=== PATIENT | male | born 1960 | race Caucasian/White ===

== ENCOUNTER 2020-10-03 02:09 | Emergency (ER) | payer OTHER ==
[2020-10-03] MEDS ORDERED: Sodium Chloride 0.9% 2.5 ML Syringe FLUSH PRN (02:10)
[2020-10-03] MEDS ORDERED: Sodium Chloride 0.9% 10 ML Syringe FLUSH PRN (02:10)
--- NOTE | 2020-10-03 02:13 | EDM.PDOC ---
ED HPI GENERAL MEDICAL PROBLEM - General Stated Complaint: ABD PAIN Time Seen by Provider: 10/03/20 02:27 - History of Present Illness INITIAL COMMENTS - FREE TEXT/NARRATIVE: History of present illness: [] Has 2 days of pain that started in the anterior chest. It gradually migrated into the epigastrium. Now has migrated down to its in the back. For 1 hours been horribly severe. For 10 years he has episodes as often as twice a month of similar pain. When he gets the pain he vomits and then it goes away. This time he is vomited multiple times and it has not gone away. He is a non-smoker but chews tobacco. In the remote past he saw a doctor who told him that there was something wrong with his gallbladder after doing a work-up in the hospital in [place]. He does not know the name of the hospital. He remembers the studies they did show that his gallbladder bladder was sluggish but there were no stones. The patient is a non-smoker not diabetic and does not take medicine for any medical problems. Last hour the pain has been severe in the epigastrium radiating to the back. Review of systems: As per history of present illness and below otherwise all systems reviewed and negative. Past medical history: As per history of present illness and as reviewed below otherwise noncontributory. Surgical history: As per history of present illness and as reviewed below otherwise noncontributory. Social history: No reported history of drug or alcohol abuse. Family history: As per history of present illness and as reviewed below otherwise noncontributory. Physical exam: Constitutional - well developed, well-nourished and in no acute distress HEENT - normocephalic, no evidence of trauma - external nose and mouth normal - no mass in neck and no JVD - mucosae moist EYES - full EOM, PERRL, no icterus - no evidence of inflammation, injection, or drainage Respiratory - no respiratory distress, equal bilateral expansion, lungs clear to auscultation and no abnormal lung sounds Cardiovascular - Regular Rhythm with S1 and S2 appreciated and no murmur, gallop or rub. GI -stephie in epigastrium only. Abdomen soft without distension or organomegaly - normal bowel sounds - no guard or rebound Musculoskeletal no gross deformity of long bones or joints - no tenderness, swelling or edema Neurologic - Alert and oriented times four - CN II-XII grossly intact - motor sensory and coordination symmetrically normal Psychiatric - appropriate mood and affect with normal thought content Hematologic - No petechiae or purpura - mucosa appropriate color and sclera not pale - normal nail bed color and refill Integument - no rash or evidence of trauma - normal turgor Diagnostics: [] Therapeutics: [] Impression: [] Plan: [] Definitive disposition and diagnosis as appropriate pending reevaluation and review of above. Abdomen Pain Score (Numeric/FACES): 8 - Related Data Allergies Allergy/AdvReac Type Severity Reaction Status Date / Time No Known Allergies Allergy Verified 10/03/20 02:18 Home Meds: Home Meds Omeprazole 20 mg PO DAILY #30 capsule. 10/03/20 [Rx] ED ROS GENERAL - Review of Systems Review Of Systems: Comprehensive ROS is negative, except as noted in HPI. ED EXAM, GENERAL - Physical Exam Exam: See Below Free Text/Narrative:: My physical exam is in the HPI #1 Interpretation EKG Interpretation Comments: EKG normal sinus rhythm heart rate 61 [place] 42. [place] 170 1QT 419. Cardial leads have a low voltage but otherwise the EKG appears essentially normal. No prior for comparison. Impression no acute injury Course - Vital Signs Text/Narrative:: Patient symptoms were completely relieved with GI cocktail with lidocaine. I base my medical decision on the most likely cause of his symptomatology and the findings from his lab exam and HTN x-ray. At the patient home with a prescription for PPI. Last Recorded V/S: Last Vital Signs Temp 35.5 C L 10/03/20 02:15 Pulse 76 10/03/20 02:15 Resp 18 10/03/20 02:15 BP 153/71 H 10/03/20 02:15 Pulse Ox 98 10/03/20 02:15 - Orders/Labs/Meds Orders: Active Orders 24 hr Category Date Time Status EKG Documentation Completion [RC] AM Care 10/03/20 02:10 Active Sodium Chloride 0.9% [Saline Flush] Med 10/03/20 02:10 Active 10 ml FLUSH ASDIRECTED PRN Sodium Chloride 0.9% [Saline Flush] Med 10/03/20 02:10 Active 2.5 ml FLUSH ASDIRECTED PRN Saline Lock Insert [OM.PC] Stat Oth 12/08/20 02:10 Ordered Medication Orders Sodium Chloride (Saline Flush) 10 ml FLUSH ASDIRECTED PRN PRN Reason: Keep Vein Open Sodium Chloride (Saline Flush) 2.5 ml FLUSH ASDIRECTED PRN PRN Reason: Keep Vein Open Labs: Laboratory Tests 10/03/20 12 Range/Units 02:20 02:20 WBC 11.46 H (4.0-11.0) K/uL RBC 6.10 H (4.50-5.90) M/uL Hgb 16.3 (13.0-17.0) g/dL Hct 50.6 H (38.0-50.0) % MCV 83.0 (80.0-98.0) fL MCH 26.7 L (27.0-32.0) pg MCHC 32.2 (31.0-37.0) g/dL RDW Std Deviation 40.8 (28.0-62.0) fl RDW Coeff of Stacey 14 (11.0-15.0) % Plt Count 338 (150-400) K/uL MPV 10.00 (7.40-12.00) fL Neut % (Auto) 60.4 (48.0-80.0) % Lymph % (Auto) 30.6 (16.0-40.0) % Sharkey % (Auto) 7.2 (0.0-15.0) % Eos % (Auto) 1.2 (0.0-7.0) % Baso % (Auto) 0.6 (0.0-1.5) % Neut # (Auto) 6.9 H (1.4-5.7) K/uL Lymph # (Auto) 3.5 H (0.6-2.4) K/uL Sharkey # (Auto) 0.8 (0.0-0.8) K/uL Eos # (Auto) 0.1 (0.0-0.7) K/uL Baso # (Auto) 0.1 (0.0-0.1) K/uL Nucleated RBC % 0.0 /100WBC Nucleated RBCs # 0 K/uL Sodium 140 (136-148) mmol/L Potassium 4.2 (3.5-5.1) mmol/L Chloride 104 (98-107) mmol/L Carbon Dioxide 23.9 (21.0-32.0) mmol/L BUN 12 (7.0-18.0) mg/dL Creatinine 1.1 (0.8-1.3) mg/dL Est Cr Clr Drug Dosing 73.20 mL/min Estimated GFR (MDRD) > 60.0 ml/min Glucose 138 H (74-106) mg/dL Calcium 9.5 (8.5-10.1) mg/dL Total Bilirubin 0.5 (0.2-1.0) mg/dL AST 27 (15-37) IU/L ALT 36 (14-63) IU/L Alkaline Phosphatase 80 (46-116) U/L Troponin I < 0.050 (0.000-0.056) ng/mL Total Protein 8.1 (6.4-8.2) g/dL Albumin 3.9 (3.4-5.0) g/dL Globulin 4.2 H (2.6-4.0) g/dL Albumin/Globulin Ratio 0.9 (0.9-1.6) Lipase 172 (73-393) U/L Meds: Medications Generic Name Dose Route Start Last Admin Trade Name Freq PRN Reason Stop Dose Admin Sodium Chloride 10 ml 10/03/20 02:10 Saline Flush FLUSH ASDIRECTED PRN Keep Vein Open Sodium Chloride 2.5 ml 10/03/20 02:10 Saline Flush FLUSH ASDIRECTED PRN Keep Vein Open Discontinued Medications Generic Name Dose Route Start Last Admin Trade Name Freq PRN Reason Stop Dose Admin Al Hydroxide/Mg Hydroxide 15 0 ml 10/03/20 03:26 10/03/20 03:30 ml/ Lidocaine HCl 5 ml PO 10/03/20 03:27 1 each ONETIME ONE Administration Hydromorphone HCl 1 mg 10/03/20 02:29 10/03/20 02:34 Dilaudid IVPUSH 10/03/20 02:30 1 mg ONETIME ONE Administration Sodium Chloride 1,000 mls @ 999 mls/hr 10/03/20 02:29 10/03/20 02:32 Normal Saline IV 10/03/20 03:29 999 mls/hr .Bolus ONE Administration Ondansetron HCl 4 mg 10/03/20 02:29 10/03/20 02:34 Zofran IVPUSH 10/03/20 02:30 4 mg ONETIME ONE Administration Departure - Departure Time of Disposition: 03:45 Disposition: Home, Self-Care 01 Condition: Good Clinical Impression: Gastritis, GERD (gastroesophageal reflux disease) - Discharge Information Instructions: Gastroesophageal Reflux Disease, Adult, [id number] Referrals: PCP,None [Primary Care Provider] - Additional Instructions: [facility] [address] [place] [address] [facility] [address] [place] [id number] The following information is given to patients seen in the emergency department who are being discharged to home. This information is to outline your options for follow-up care. We provide all patients seen in our emergency department with a follow-up referral. The need for follow-up, as well as the timing and circumstances, are variable depending upon the specifics of your emergency department visit. If you don't have a primary care physician on staff, we will provide you with a referral. We always advise you to contact your personal physician following an emergency department visit to inform them of the circumstance of the visit and for follow-up with them and/or the need for any referrals to a consulting specialist. The emergency department will also refer you to a specialist when appropriate. This referral assures that you have the opportunity for follow-up care with a specialist. All of these measure are taken in an effort to provide you with optimal care, which includes your follow-up. Under all circumstances we always encourage you to contact your private physician who remains a resource for coordinating your care. When calling for follow-up care, please make the office aware that this follow-up is from your recent emergency room visit. If for any reason you are refused follow-up, please contact the [facility] Emergency Department at and asked to speak to the emergency department charge nurse. Sepsis Event Note (ED) - Focused Exam Vital Signs: Vital Signs Temp Pulse Resp BP Pulse Ox 10/03/20 02:15 35.5 C L 76 18 153/71 H 98 - My Orders Last 24 Hours: My Active Orders 10/03/20 02:10 EKG Documentation Completion [RC] AM Sodium Chloride 0.9% [Saline Flush] 10 ml FLUSH ASDIRECTED PRN Sodium Chloride 0.9% [Saline Flush] 2.5 ml FLUSH ASDIRECTED PRN Saline Lock Insert [OM.PC] Stat - Assessment/Plan Last 24 Hours: My Active Orders 10/03/20 02:10 EKG Documentation Completion [RC] AM Sodium Chloride 0.9% [Saline Flush] 10 ml FLUSH ASDIRECTED PRN Sodium Chloride 0.9% [Saline Flush] 2.5 ml FLUSH ASDIRECTED PRN Saline Lock Insert [OM.PC] Stat
[2020-10-03] MEDS ORDERED: Sodium Chloride 0.9% 1,000 ML IV ONE (02:29)
[2020-10-03] MEDS ORDERED: Ondansetron 4 MG/2 ML SDV IVPUSH ONE (02:29)
[2020-10-03] MEDS ORDERED: HYDROmorphone 1 MG/ML Syringe IVPUSH ONE (02:29)
[2020-10-03 02:55] LABS: BLOOD UREA NITROGEN,BUN 12 mg/dL (7.0-18.0); CARBON DIOXIDE,CO2 23.9 mmol/L (21.0-32.0); CHLORIDE,CL 104 mmol/L (98-107); GLUCOSE RANDOM 138 mg/dL (74-106); LIPASE 172 U/L (73-393); POTASSIUM,K 4.2 mmol/L (3.5-5.1); SODIUM,NA 140 mmol/L (136-148)
[2020-10-03] MEDS ORDERED: Alum Hydrox/Mag Hydrox/Simeth 15 ML, Lidocaine 2% 5 ML PO ONE ×2 (03:26)
--- NOTE | 2020-10-03 03:29 | CR ---
Indication: Upper abdominal pain Technique: Chest 1 view Comparison: None Findings/Impression: Cardiovascular and mediastinum: Heart size and vasculature are normal in caliber and appearance. Lungs and pleural space: Lungs are clear. No sign of infiltrate or mass. No sign of pleural effusion. No pneumothorax. Bones and soft tissues: No acute findings. Dictated by Marco Dick MD @ Oct 03 2020 3:27AM Signed by Dr. Marco Dick @ Oct 03 2020 3:28AM
[2020-10-03] MEDS ORDERED: Omeprazole 20 MG Cap.CR PO ONE (03:43)
== END 2020-10-03 04:00 | disposition home or self-care (01) ==
LOC: MW.ED 02:09
DX: K29.70 Gastritis, unspecified, without bleeding (principal); K21.9 Gastro-esophageal reflux disease without esophagitis; Z79.899 Other long term (current) drug therapy
CPT/HCPCS: 36415; 71045; 80053; 83690; 84484; 85025; 93005; 96374; 96375; 99284; A9270; J1170; J2405; J7030; 93010